=== PATIENT | female | born 1980 | race Caucasian/White ===

== ENCOUNTER 2019-03-07 11:09 | Observation (INO) ==
[2019-03-07] MEDS ORDERED: Isovue-370 500 ML BOTTLE IVP ONE (11:27)
[2019-03-07 11:47] LABS: Hematocrit 41.6 % (35.3-44.9); Hemoglobin 13.1 g/dL (11.5-15.4); Mean Corpuscular HGB Conc 31.5 g/dL (31.6-35.5); Mean Corpuscular Hemoglobin 25.8 pg (28.0-33.3); Mean Corpuscular Volume 82.1 fL (83.0-100.0); Platelet Count 118 K/mcL (140-400); Red Blood Count 5.07 M/mcL (3.82-4.97); Red Cell Distribution Width 15.9 % (11.5-14.5); White Blood Count 6.2 K/mcL (4.3-11.1)
[2019-03-07 11:55] LABS: Prothrombin Time 11.6 Seconds (9.4-12.1)
[2019-03-07 11:57] LABS: Activated Partial Thrombo Time 67.9 Seconds (26.0-36.0)
[2019-03-07 12:06] LABS: Alanine Aminotransferase 15 Units/L (7-52); Albumin 3.9 g/dL (3.5-5.7); Albumin/Globulin Ratio 1.2 (1.1-2.2); Alkaline Phosphatase 65 Units/L (34-104); Aspartate Amino Transferase 17 Units/L (13-39); BUN/Creatinine Ratio 11 (6-26); Bilirubin,Total 0.4 mg/dL (0.3-1.0); Blood Urea Nitrogen 10 mg/dL (6-20); Calcium 9.6 mg/dL (8.6-10.3); Carbon Dioxide 27 mEq/L (23-29); Chloride 102 mEq/L (98-107); Globulin 3.3 g/dL (2.4-3.5); Glucose 113 mg/dL (70-105); Osmolality,Calculated 286 (280-300); Potassium 4.2 mEq/L (3.5-5.1); Sodium 138 mEq/L (136-145); Total Protein 7.2 g/dL (6.4-8.9); eGFR For African Americans > 60 (> 60); eGFR For Non-African Americans > 60 (> 60)
[2019-03-07 12:54] LABS: Bilirubin,Urine Negative (Negative); Blood,Urine Negative (Negative); Clarity,Urine Clear (Clear); Color,Urine Yellow (Yellow); Glucose,Urine (UA) Normal (Normal); Ketones,Urine Negative (Negative); Leukocyte Esterase,Urine Small (Negative); Nitrite,Urine Negative (Negative); PH,Urine 6.5 pH Units (5.0-8.0); Protein,Urine Negative (Neg-Trace); Urobilinogen,Urine Normal (Normal)
[2019-03-07 13:02] LABS: Bacteria,Urine Few per hpf (None-Few); Hyaline Casts,Urine None Seen per lpf (None-Few); RBC,Urine 0-3 per hpf (0-3); Squamous Epithelial Cell,Urine Many per lpf (None-Few)
[2019-03-07 13:49] LABS: Lactate Dehydrogenase 154 Units/L (140-271)
[2019-03-07] MEDS ORDERED: *HR* Heparin 5,000 UNIT/ML VIAL IVP PRN (14:31)
[2019-03-07] MEDS ORDERED: *HR* Heparin 5,000 UNIT/ML VIAL IVP ONE (14:31)
[2019-03-07] MEDS ORDERED: Heparin 25,000 UNIT/250 ML D5W 25,000 UNIT/250 ML IV.SOLN IVC SCH (14:45)
[2019-03-07] MEDS ORDERED: Acetaminophen 325 MG TABLET PO PRN (16:53)
[2019-03-07] MEDS ORDERED: *HR* HYDROcodone/Acet 5/325 mg TABLET PO PRN (16:53)
[2019-03-07] MEDS ORDERED: Naloxone 0.4 MG/ML INJ IVP PRN (16:53)
[2019-03-07] MEDS ORDERED: Ondansetron 4 MG/2 ML VIAL IVP PRN (16:53)
[2019-03-07] MEDS: *HR* Heparin 5,000 UNIT/ML VIAL IVP PRN (22:17)
[2019-03-08 05:24] LABS: Hematocrit 38.5 % (35.3-44.9); Hemoglobin 12.2 g/dL (11.5-15.4); Mean Corpuscular HGB Conc 31.7 g/dL (31.6-35.5); Mean Corpuscular Volume 82.1 fL (83.0-100.0); Mean Platelet Volume 10.1 fL (9.4-12.4); Platelet Count 143 K/mcL (140-400); Red Blood Count 4.69 M/mcL (3.82-4.97); Red Cell Distribution Width 15.9 % (11.5-14.5)
[2019-03-08] MEDS: *HR* Heparin 5,000 UNIT/ML VIAL IVP PRN (05:35)
[2019-03-08 05:41] LABS: BUN/Creatinine Ratio 11 (6-26); Blood Urea Nitrogen 10 mg/dL (6-20); Carbon Dioxide 25 mEq/L (23-29); Chloride 100 mEq/L (98-107); Glucose 89 mg/dL (70-105); Osmolality,Calculated 283 (280-300); Potassium 3.6 mEq/L (3.5-5.1); Sodium 137 mEq/L (136-145); eGFR For African Americans > 60 (> 60); eGFR For Non-African Americans > 60 (> 60)
[2019-03-08 07:20] VITALS: BP 137/82
[2019-03-08] MEDS ORDERED: Apixaban 5 MG TABLET PO SCH (10:00)
[2019-03-10 14:04] LABS: ANA IgG by ELISA DETECTED (None Detected)
[2019-03-10 20:45] LABS: FACV Specimen WHOLE BLOOD
[2019-03-11 10:44] LABS: Fac V Leiden R506Q Mut Result NEGATIVE
[2019-03-11 18:06] LABS: ANA HEp-2 IgG IFA DETECTED (<1:80); Anti Nuclear Ab Pattern NUCLEOLAR
[2019-03-12 00:09] LABS: Prothrombin G20210A Specimen WHOLE BLOOD
[2019-03-12 07:20] LABS: Prothrombin G20210A Mut Result NEGATIVE
[2019-03-15 08:24] LABS: Antiphospholipid IgG High Spec 6 GPL (0-14); Antiphospholipid IgM High Spec 2 MPL (0-14)
== END 2019-03-08 11:51 | disposition home or self-care (01) ==
LOC: EMEROOARM 11:09 → 3ANU 11:09 → SUATTDRO 16:36 → 3ANU 18:00
PROVIDERS: ADMIT Family Medicine; ATTEND Internal Medicine

== ENCOUNTER 2020-05-19 16:14 | Observation (INO) ==
[2020-05-19] MEDS ORDERED: Isovue-370 500 ML BOTTLE IVP ONE (16:37)
[2020-05-19 16:54] LABS: Basophils % 0.3 %; Eosinophils # 0.1 K/mcL (0.0-0.6); Eosinophils % 2.1 %; Hematocrit 39.7 % (35.3-44.9); Hemoglobin 12.6 g/dL (11.5-15.4); Immature Granulocytes % 0.6 % (0-4); Lymphocytes # 0.9 K/mcL (0.6-4.6); Lymphocytes % 12.8 %; Mean Corpuscular HGB Conc 31.7 g/dL (31.6-35.5); Mean Corpuscular Hemoglobin 25.7 pg (28.0-33.3); Mean Corpuscular Volume 80.9 fL (83.0-100.0); Mean Platelet Volume 9.3 fL (9.4-12.4); Monocytes # 0.3 K/mcL (0.0-1.3); Monocytes % 4.4 %; Neutrophils # 5.5 K/mcL (1.6-8.9); Platelet Count 112 K/mcL (140-400); Red Blood Count 4.91 M/mcL (3.82-4.97); Red Cell Distribution Width 15.5 % (11.5-14.5); Segmented Neutrophils % 79.8 %; White Blood Count 6.8 K/mcL (4.3-11.1)
[2020-05-19 17:14] LABS: BUN/Creatinine Ratio 11 (6-26); Blood Urea Nitrogen 10 mg/dL (6-20); Calcium 9.3 mg/dL (8.6-10.3); Carbon Dioxide 23 mEq/L (23-29); Chloride 104 mEq/L (98-107); Glucose 124 mg/dL (70-105); Osmolality,Calculated 282 (280-300); Potassium 3.9 mEq/L (3.5-5.1); Sodium 136 mEq/L (136-145); Troponin I < 0.03 ng/mL (< 0.04); eGFR For African Americans > 60 (> 60); eGFR For Non-African Americans > 60 (> 60)
[2020-05-19] MEDS ORDERED: *HR* Heparin 5,000 UNIT/ML VIAL IVP PRN ×2 (17:53)
[2020-05-19] MEDS ORDERED: *HR* Heparin 5,000 UNIT/ML VIAL IVP ONE (17:53)
[2020-05-19] MEDS ORDERED: Heparin 25,000UNIT/250ML 1/2NS 25,000 UNIT/250 ML IV.SOLN IVC SCH ×2 (18:00→18:01)
[2020-05-19 18:28] LABS: Mean Corpuscular Hemoglobin 25.7 pg (28.0-33.3)
[2020-05-19 18:30] LABS: Hematocrit 37.7 % (35.3-44.9); Immature Platelets 3.1 % (1.1-6.1); Mean Corpuscular HGB Conc 31.8 g/dL (31.6-35.5); Mean Corpuscular Volume 80.7 fL (83.0-100.0); Mean Platelet Volume 9.8 fL (9.4-12.4); Red Blood Count 4.67 M/mcL (3.82-4.97); Red Cell Distribution Width 15.4 % (11.5-14.5); White Blood Count 6.9 K/mcL (4.3-11.1)
[2020-05-19 18:38] LABS: Heparin anti-factor XA UFH 0.98 IU/mL (0.30-0.70); INR 1.4; Prothrombin Time 16.1 Seconds (9.4-12.1)
[2020-05-19] MEDS ORDERED: Naloxone 0.4 MG/ML INJ IVP PRN (18:39)
[2020-05-19] MEDS ORDERED: Acetaminophen 325 MG TABLET PO PRN (19:22)
[2020-05-19 20:18] LABS: Albumin 3.7 g/dL (3.5-5.7); Albumin/Globulin Ratio 1.2 (1.1-2.2); Bilirubin,Direct 0.1 mg/dL (0.0-0.2); Bilirubin,Indirect 0.5 mg/dL (0.0-1.0); Bilirubin,Total 0.6 mg/dL (0.3-1.0); Magnesium 1.8 mg/dL (1.6-2.6); Phosphorous 3.4 mg/dL (2.7-4.5); Total Protein 6.7 g/dL (6.4-8.9)
[2020-05-20 00:31] LABS: Basophils % 0.4 %; Red Cell Distribution Width 15.5 % (11.5-14.5)
[2020-05-20 00:33] LABS: Eosinophils # 0.2 K/mcL (0.0-0.6); Eosinophils % 3.6 %; Hematocrit 37.4 % (35.3-44.9); Hemoglobin 11.7 g/dL (11.5-15.4); Immature Granulocytes % 0.4 % (0-4); Immature Platelets 3.3 % (1.1-6.1); Lymphocytes # 1.2 K/mcL (0.6-4.6); Lymphocytes % 23.1 %; Mean Corpuscular HGB Conc 31.3 g/dL (31.6-35.5); Mean Corpuscular Hemoglobin 25.2 pg (28.0-33.3); Mean Corpuscular Volume 80.4 fL (83.0-100.0); Mean Platelet Volume 9.2 fL (9.4-12.4); Monocytes # 0.2 K/mcL (0.0-1.3); Monocytes % 4.4 %; Neutrophils # 3.6 K/mcL (1.6-8.9); Platelet Count 112 K/mcL (140-400); Red Blood Count 4.65 M/mcL (3.82-4.97); Segmented Neutrophils % 68.1 %; White Blood Count 5.3 K/mcL (4.3-11.1)
[2020-05-20 00:48] LABS: BUN/Creatinine Ratio 12 (6-26); Blood Urea Nitrogen 10 mg/dL (6-20); Carbon Dioxide 24 mEq/L (23-29); Chloride 102 mEq/L (98-107); Glucose 86 mg/dL (70-105); Potassium 3.2 mEq/L (3.5-5.1); Sodium 136 mEq/L (136-145); eGFR For African Americans > 60 (> 60); eGFR For Non-African Americans > 60 (> 60)
[2020-05-20 00:49] LABS: Calcium 8.8 mg/dL (8.6-10.3); Osmolality,Calculated 280 (280-300)
[2020-05-20] MEDS ORDERED: Vitamin B Complex/Vit C/Vit E 1 EACH TABLET PO SCH (09:00)
[2020-05-20] MEDS ORDERED: PARoxetine 20 MG TABLET PO SCH (09:00)
[2020-05-20] MEDS ORDERED: Folic Acid 1 MG TABLET PO SCH (09:00)
[2020-05-20] MEDS ORDERED: Thiamine (B-1) 100 MG TABLET PO SCH (09:00)
[2020-05-20] MEDS ORDERED: *HR* Rivaroxaban 15 MG TABLET PO SCH (11:00)
[2020-05-20 11:53] VITALS: BP 169/99
== END 2020-05-20 14:00 | disposition home or self-care (01) ==
LOC: EMEROOARM 16:14 → 2ANU 16:14 → SUATTDRO 19:21 → 2ANU 20:17
PROVIDERS: ADMIT Internal Medicine; ATTEND Internal Medicine